=== PATIENT | male | born 1990 | race Caucasian/White ===

== ENCOUNTER 2016-04-07 19:18 | Emergency (ER) | payer OTHER ==
[2016-04-07] MEDS ORDERED: ONDANSETRON 4MG/2ML VIAL (J2405) As Ordered ONE (20:16)
[2016-04-07] MEDS ORDERED: KETOROLAC 30 MG/ML VIAL (J1885) As Ordered ONE (20:17)
[2016-04-07 20:35] LABS: BASO # 0.2 K/mm3 (0.0-0.2); BASO % 1.2 % (0.0-1.0); EOS # 0.2 K/mm3 (0.0-0.50); EOS % 1.4 % (0.0-3.0); LARGE UNSTAINED CELL # 0.2 K/mm3 (0.0-0.4); LARGE UNSTAINED CELL % 1.7 % (0.0-4.0); LYMPH # 1.8 K/mm3 (1.5-6.5); LYMPH % 11.4 % (24.0-44.0); MEAN CORPUSCULAR VOLUME 85.3 fl (80.0-96.0); MONO # 0.6 K/mm3 (0.0-0.8); MONO % 4.6 % (0.0-5.0); NEUTROPHILS # 10.7 K/mm3 (1.8-7.7); NEUTROPHILS % 79.7 % (36.0-66.0); PLATELET COUNT, AUTOMATED 232 k/mm3 (150-450); RED CELL DISTRIBUTION WIDTH 12.7 % (11.5-14.5); WHITE BLOOD COUNT 13.5 K/mm3 (4.0-10.0)
[2016-04-07 20:58] LABS: ALBUMIN 4.1 GM/DL (3.2-5.2); ALBUMIN/GLOBULIN RATIO 1.24 (1.00-1.93); ALKALINE PHOSPHATASE 71 U/L (45-117); ALT/SGPT 104 U/L (12-78); AMYLASE 71 U/L (25-115); ANION GAP 8 MEQ/L (8-16); AST/SGOT 83 U/L (15-37); BILIRUBIN,DIRECT 0.2 MG/DL (0.0-0.2); BILIRUBIN,TOTAL 0.5 MG/DL (0.2-1.0); BLOOD UREA NITROGEN 8 MG/DL (7-18); CARBON DIOXIDE LEVEL 31 MEQ/L (21-32); CHLORIDE LEVEL 103 MEQ/L (98-107); CREATININE FOR GFR 0.96 MG/DL (0.70-1.30); GLOMERULAR FILTRATION RATE > 60.0 (>60); GLUCOSE, FASTING 119 MG/DL (70-105); POTASSIUM SERUM 3.9 MEQ/L (3.5-5.1); SODIUM LEVEL 142 MEQ/L (136-145); TOTAL PROTEIN 7.4 GM/DL (6.4-8.2)
--- NOTE | 2016-04-07 21:30 | REPUSA ---
CLINICAL HISTORY: Pain. TECHNIQUE: Realtime sonographic images were obtained in multiple projections. COMMENTS: The liver is of uniform echo texture without evidence of mass or defect. There is no intra or extrahe patic biliary ductal dilatation. The common bile duct measures up to 3.6 mm. The gallbladder is physi ologically distended, contains sluge but without evidence of calculi. The gallbladder wall is not thi ckened and there is no pericholecystic fluid. There is no abdominal ascites. The visualized portions of the pancreas are unremarkable. The right kidney measures 14.3 cm and is fr ee of masses or hydronephrosis. The visualized portions of abdominal aorta present no abnormalities. IMPRESSION: Gallbladder sludge. Otherwise negative. Thank you for your kind referral of this patient.
[2016-04-07] MEDS ORDERED: MORPHINE 2 MG/ML 1ML SYRINGE As Ordered ONE (22:00)
[2016-04-07] MEDS ORDERED: ISOVUE-370 76% 100ML VIAL (Q9967) As Ordered ONE (22:42)
--- NOTE | 2016-04-07 23:50 | REPUSA ---
CLINICAL HISTORY: Abdominal pain. TECHNIQUE: CT abdomen and pelvis following administration of IV contrast. COMPARISON: No pertinent prior studies are available at this time. CT ABDOMEN WITH CONTRAST: Lung bases: No lung base infiltrate or effusion. Liver: Diffusely decreased hepatic attenuation consistent with fatty infiltration. No intrahepatic du ctal dilation. Gallbladder: Normally distended. Pancreas: No pancreatic duct dilation. Bowel loops: Nondistended. Spleen: Normal size. Adrenals: Normal size. Kidneys: No stones or hydronephrosis. Aorta: Normal caliber. Peritoneum: No free air. CT PELVIS WITH CONTRAST: Colon: Nondistended. Appendix: Normal appendix is seen. Bladder: Normally distended. Pelvic organs: Unremarkable. Peritoneum: No fluid. Skeleton: No acute findings. IMPRESSION: 1. Fatty hepatic infiltration. Correlate with hepatic enzymes. 2. Otherwise, no acute abdominal findings.
--- NOTE | 2016-04-08 00:31 | EDDOCDS ---
Nurse's Notes [facility] Name: Paz Castro Age: 25 yrs Sex: Male : 1990 Arrival Date: 04/07/2016 Time: 19:18 Bed I3 / M3 Private MD: MARIVEL Su Diagnosis: Upper abdominal pain, unspecified-RIGHT UPPER, POSSIBLE BILIARY COLIC SECONDARY TO BILIARY SLUDGE Presentation: 04/07 19:29 Presenting complaint: Patient states: acute upper abdominal pain started an hour ago rs3 when making dinner. pain radiates to mid back and chest. vomited once with the pain. Risk factors: the patient reports not having a history of previous torsion. Adult Sepsis Screening: The patient does not have new or worsening altered mentation. Patient's respiratory rate is less than 22. Systolic blood pressure is greater than 100. Patient has a qSOFA score of 0- Negative Sepsis Screen. Suicide/Homicide risk assessment- the patient denies having any suicidal and/or homicidal ideations and does not present with any other emotional, behavioral or mental health complaints. 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 Transition of care: patient was not received from another setting of care. 19:29 Acuity: YOLY Level 3 rs3 19:29 Method Of Arrival: Walkin/Carried/Asstd rs3 Triage Assessment: 19:30 General: Appears in no apparent distress. Pain: Location: chest and abdomen. HIV rs3 screening NA for this visit Offered previously. GI: Reports upper abd pain. Historical: - Allergies: no known allergies; - Home Meds: 1. none - PMHx: none; - PSHx: none; - Social history: Smoking status: Patient uses tobacco products, light tobacco smoker. No barriers to communication noted, The patient speaks fluent Hungarian. - Family history: Not pertinent. - : The pt / caregiver states he / she is not on anticoagulants. Home medication list is obtained from the patient. - Exposure Risk Screening:: None identified. Screenin:26 Screening information is obtained from the patient. Fall risk: No risks identified. jmb Assistance ADL's: requires no assistance with activities of daily living. Abuse/DV Screen: The patient / caregiver reports he/she is: not in a situation that causes fear, pain or injury. Nutritional screening: No deficits noted. home support is adequate. Assessment: 20:26 General: Appears uncomfortable, Behavior is appropriate for age, cooperative. Pain: jmb Location: xyphoid area Pain currently is 8 out of 10 on a pain scale. Neurological: Level of Consciousness is awake, alert, obeys commands, Oriented to person, place, time, Ointment Mill Tender are equal bilaterally Speech is normal, Facial symmetry appears normal, Facial symmetry: tongue is midline. Cardiovascular: Capillary refill < 3 seconds Heart tones present Pulses are all present. Rhythm is regular. Respiratory: Airway is patent Respiratory effort is even, unlabored, Respiratory pattern is regular, symmetrical, Breath sounds are clear bilaterally. GI: Abdomen is non- distended Bowel sounds present X 4 quads. Abd is soft X 4 quads. Derm: Skin is pink, warm & dry. Musculoskeletal: Range of motion intact in all extremities. 21:23 General: Appears in no apparent distress, comfortable, Behavior is appropriate for age, jmb cooperative, Patient laying on stretcher, appears comfortable. Patient voices pain scaled 7/10. Patient watching television with family at bedside. NO voiced complaints at this time. Pain reported to Jagdeep Kapoor.. Pain: Location: xyphoid area Pain currently is 7 out of 10 on a pain scale. Neurological: Level of Consciousness is awake, alert, obeys commands, Oriented to person, place, time. Respiratory: Airway is patent Respiratory effort is even, unlabored, Respiratory pattern is regular, symmetrical. 22:30 General: Appears in no apparent distress, comfortable, Behavior is appropriate for age, jmb cooperative. Neurological: Level of Consciousness is awake, alert, obeys commands, Oriented to person, place, time. Respiratory: Airway is patent Respiratory effort is even, unlabored, Respiratory pattern is regular, symmetrical. 23:21 General: Appears in no apparent distress, comfortable, Behavior is appropriate for age, jmb cooperative, Patient laying on stretcher watching television. NO voiced complaints at this time. . Neurological: Level of Consciousness is awake, alert, obeys commands, Oriented to person, place, time. Respiratory: Airway is patent Respiratory effort is even, unlabored, Respiratory pattern is regular, symmetrical. 04/08 00:08 General: Appears in no apparent distress, comfortable, Behavior is appropriate for age, jmb cooperative. Neurological: Level of Consciousness is awake, alert, obeys commands, Oriented to person, place, time. Respiratory: Airway is patent Respiratory effort is even, unlabored, Respiratory pattern is regular, symmetrical. Vital Signs: 04/07 19:21 BP 144 / 75; Pulse 90; Resp 20; Temp 97.5; Pulse Ox 100% ; Weight 70.31 kg; Height 5 elp ft. 7 in. (170.18 cm); Pain 10/10; 20:49 BP 104 / 55; Pulse 61; Resp 18; Temp 96.0(T); Pulse Ox 100% on R/A; Pain 6/10; sandra 04/08 00:25 BP 115 / 67 LA Sitting (auto/reg); Pulse 64 MON; Resp 18 S; Temp 97.7(O); Pulse Ox 100% cln on R/A; Pain 0/10; 04/07 19:21 Body Mass Index 24.28 (70.31 kg, 170.18 cm) elp Vitals: 04/07 19:21 Log In Time: April 07, 2016 at 19:18. el ED Course: 19:19 Patient visited by Jaimee Vera PCA. elp 19:19 Sharlene [facility] is Private Physician. elp 19:19 Patient moved to Waiting elp 19:21 Patient visited by Jaimee Vera PCA. elp 19:21 Patient moved to Pre RCE elp 19:30 Triage Initiated rs3 19:31 Patient moved to Triage 2 rs3 19:45 Naga Garza RPA-C is [facility]. ck7 19:45 Prasanth Jenkins DO is Attending Physician. ck7 19:45 Patient visited by Naga Garza RPA-C. ck7 20:14 Patient moved to I3 / M3 cln 20:17 Urinalysis Sent. ms18 20:17 Urine Culture Sent. ms18 20:26 The patient / caregiver is instructed regarding the plan of care and ED course. sherry 20:26 Amylase Sent. sherry 20:26 Basic Metabolic Profile Sent. sherry 20:26 CBC with Diff Sent. sherry 20:26 Lipase Sent. sherry 20:26 Liver Profile Sent. sherry 20:26 Inserted saline lock: 20 gauge in left antecubital area and blood collected. [facility] patient tolerated the procedure well. Labs drawn. (by ED staff). Sent per order to lab. Urine collected. Clean catch specimen. 20:28 Patient visited by Ilya Boyd,ROD. jmb 20:47 Patient moved to Ultrasound dmg 20:50 Patient visited by Lily Castorena, JANETH. sandra 21:04 Patient moved to I3 / M3 cz 21:24 Patient visited by Ilya Boyd,ROD. jmb 21:44 [facility] Payment Agreement was scanned into [employer] and attached to record. zo 21:47 Gallbladder US Returned. EDMS 22:07 Patient visited by Dillan Foley RN. cz 22:40 Patient visited by Naga Garza RPA-C. ck7 23:22 Patient visited by Ilya Boyd RN. jmb 04/08 00:09 Patient visited by Ilya Boyd RN. jmb 00:15 CT ABD & PELVIS: IV Contrast Only Returned. EDMS 00:22 Sloan Moss DO is Referral Physician. ck7 00:26 Patient visited by Isabel Faust, JANETH. cln 00:30 No procedures done that require assistance. cz Administered Medications: 04/07 20:26 Drug: Ondansetron 4 mg Route: IVP; Site: left antecubital; cz 20:28 Drug: ketorolac 30 mg [ketorolac 30 mg/mL (1 mL) injection solution (1 mL)] Route: IVP; cz Site: left antecubital; 20:51 Follow up: Response: Pain is decreased cz 20:30 Drug: NS 0.9% 1000 ml [sodium chloride 0.9 % intravenous solution] Route: IV; Rate: jmb bolus; Site: left antecubital; 22:02 Drug: morphine 2 mg [morphine 2 mg/mL intravenous cartridge (1 mL)] Route: IVP; Site: cz left antecubital; Order Results: Lab Order: Amylase; SPEC'M 04/07/16 20:23 Test: AMYLASE; Value: 71; Range: 25-115; Units: U/L; Status: F Lab Order: Basic Metabolic Profile; SPEC'M 04/07/16 20:23 Test: GLUCOSE, FASTING; Value: 119; Range: 70-105; Abnormal: Above high normal; Units: MG/DL; Status: F Test: BLOOD UREA NITROGEN; Value: 8; Range: 7-18; Units: MG/DL; Status: F Test: CREATININE FOR GFR; Value: 0.96; Range: 0.70-1.30; Units: MG/DL; Status: F Test: GLOMERULAR FILTRATION RATE; Value: > 60.0; Range: >60; Status: F Test: SODIUM LEVEL; Value: 142; Range: 136-145; Units: MEQ/L; Status: F Test: POTASSIUM SERUM; Value: 3.9; Range: 3.5-5.1; Units: MEQ/L; Status: F Test: CHLORIDE LEVEL; Value: 103; Range: 98-107; Units: MEQ/L; Status: F Test: CARBON DIOXIDE LEVEL; Value: 31; Range: 21-32; Units: MEQ/L; Status: F Test: ANION GAP; Value: 8; Range: 8-16; Units: MEQ/L; Status: F Test: CALCIUM LEVEL; Value: 9.0; Range: 8.5-10.1; Units: MG/DL; Status: F Test Note: ; Units are mL/min/1.73 m2 Chronic Kidney Disease Staging per NKF: Stage I & II GFR >=60 Normal to Mildly Decreased Stage III GFR 30-59 Moderately Decreased Stage IV GFR 15-29 Severely Decreased Stage V GFR <15 Very Little GFR Left ESRD GFR <15 on UNDERWRITING SPECIALIST Lab Order: CBC with Diff; SPEC'M 04/07/16 20:23 Test: WHITE BLOOD COUNT; Value: 13.5; Range: 4.0-10.0; Abnormal: Above high normal; Units: K/mm3; Status: F Test: RED BLOOD COUNT; Value: 5.21; Range: 4.30-6.10; Units: M/mm3; Status: F Test: HEMOGLOBIN; Value: 15.1; Range: 14.0-18.0; Units: g/dl; Status: F Test: HEMATOCRIT; Value: 44.4; Range: 42.0-52.0; Units: %; Status: F Test: MEAN CORPUSCULAR VOLUME; Value: 85.3; Range: 80.0-96.0; Units: fl; Status: F Test: MEAN CORPUSCULAR HEMOGLOBIN; Value: 29.0; Range: 27.0-33.0; Units: pg; Status: F Test: MEAN CORPUSCULAR HGB CONC; Value: 34.0; Range: 32.0-36.5; Units: g/dl; Status: F Test: RED CELL DISTRIBUTION WIDTH; Value: 12.7; Range: 11.5-14.5; Units: %; Status: F Test: PLATELET COUNT, AUTOMATED; Value: 232; Range: 150-450; Units: k/mm3; Status: F Test: NEUTROPHILS %; Value: 79.7; Range: 36.0-66.0; Abnormal: Above high normal; Units: %; Status: F Test: LYMPH %; Value: 11.4; Range: 24.0-44.0; Abnormal: Below low normal; Units: %; Status: F Test: MONO %; Value: 4.6; Range: 0.0-5.0; Units: %; Status: F Test: EOS %; Value: 1.4; Range: 0.0-3.0; Units: %; Status: F Test: BASO %; Value: 1.2; Range: 0.0-1.0; Abnormal: Above high normal; Units: %; Status: F Test: LARGE UNSTAINED CELL %; Value: 1.7; Range: 0.0-4.0; Units: %; Status: F Test: NEUTROPHILS #; Value: 10.7; Range: 1.8-7.7; Abnormal: Above high normal; Units: K/mm3; Status: F Test: LYMPH #; Value: 1.8; Range: 1.5-6.5; Units: K/mm3; Status: F Test: MONO #; Value: 0.6; Range: 0.0-0.8; Units: K/mm3; Status: F Test: EOS #; Value: 0.2; Range: 0.0-0.50; Units: K/mm3; Status: F Test: BASO #; Value: 0.2; Range: 0.0-0.2; Units: K/mm3; Status: F Test: LARGE UNSTAINED CELL #; Value: 0.2; Range: 0.0-0.4; Units: K/mm3; Status: F Lab Order: Lipase; SPEC'M 04/07/16 20:23 Test: LIPASE; Value: 220; Range: 73-393; Units: U/L; Status: F Lab Order: Liver Profile; SPEC'M 04/07/16 20:23 Test: AST/SGOT; Value: 83; Range: 15-37; Abnormal: Above high normal; Units: U/L; Status: F Test: ALT/SGPT; Value: 104; Range: 12-78; Abnormal: Above high normal; Units: U/L; Status: F Test: ALKALINE PHOSPHATASE; Value: 71; Range: 45-117; Units: U/L; Status: F Test: BILIRUBIN,TOTAL; Value: 0.5; Range: 0.2-1.0; Units: MG/DL; Status: F Test: BILIRUBIN,DIRECT; Value: 0.2; Range: 0.0-0.2; Units: MG/DL; Status: F Test: TOTAL PROTEIN; Value: 7.4; Range: 6.4-8.2; Units: GM/DL; Status: F Test: ALBUMIN; Value: 4.1; Range: 3.2-5.2; Units: GM/DL; Status: F Test: ALBUMIN/GLOBULIN RATIO; Value: 1.24; Range: 1.00-1.93; Status: F Lab Order: Urinalysis; SPEC'M 04/07/16 20:15 Test: APPEARANCE, URINE; Value: CLEAR; Range: CLEAR; Status: F Test: COLOR, URINE; Value: YELLOW; Range: YELLOW; Status: F Test: PH,URINE; Value: 6.0; Range: 5.0-9.0; Units: UNITS; Status: F Test: SPECIFIC GRAVITY URINE AUTO; Value: 1.014; Range: 1.002-1.035; Status: F Test: PROTEIN, URINE AUTO; Value: NEGATIVE; Range: NEGATIVE; Units: mg/dL; Status: F Test: GLUCOSE, URINE (UA) AUTO; Value: NEGATIVE; Range: NEGATIVE; Units: mg/dL; Status: F Test: KETONE, URINE AUTO; Value: NEGATIVE; Range: NEGATIVE; Units: mg/dL; Status: F Test: UROBILINOGEN, URINE AUTO; Value: 0.2; Range: 0.0-2.0; Units: mg/dL; Status: F Test: BILIRUBIN, URINE AUTO; Value: NEGATIVE; Range: NEGATIVE; Status: F Test: NITRITE, URINE AUTO; Value: NEGATIVE; Range: NEGATIVE; Status: F Test: LEUKOCYTE ESTERASE, URINE AUTO; Value: NEGATIVE; Range: NEGATIVE; Status: F Test: BLOOD, URINE BLOOD; Value: NEGATIVE; Range: NEGATIVE; Status: F Test: WBC, URINE AUTO; Value: 1; Range: 0-3; Units: /HPF; Status: F Test: RBC, URINE AUTO; Value: 0; Range: 0-3; Units: /HPF; Status: F Test: BACTERIA, URINE AUTO; Value: NEGATIVE; Range: NEGATIVE; Status: F Test: SQUAMOUS EPITHELIAL CELL UR AU; Value: 0; Range: 0-6; Units: /HPF; Status: F Test: MUCUS, URINE; Value: SMALL; Range: NEGATIVE; Status: F Test: HYALINE CAST, URINE AUTO; Value: 0; Range: 0-1; Units: /LPF; Status: F Radiology Order: Gallbladder US Test: Gallbladder US REASON FOR EXAMINATION: Biliary Colic; ; CLINICAL HISTORY: Pain.; TECHNIQUE: Realtime sonographic images were obtained in multiple projections.; COMMENTS:; The liver is of uniform echo texture without evidence of mass or defect. There is no intra or extrahe; patic biliary ductal dilatation. The common bile duct measures up to 3.6 mm. The gallbladder is physi; ologically distended, contains sluge but without evidence of calculi. The gallbladder wall is not thi; ckened and there is no pericholecystic fluid. There is no abdominal ascites.; The visualized portions of the pancreas are unremarkable. The right kidney measures 14.3 cm and is fr; ee of masses or hydronephrosis.; The visualized portions of abdominal aorta present no abnormalities.; IMPRESSION:; Gallbladder sludge. Otherwise negative.; Thank you for your kind referral of this patient.; ; Radiology Order: CT ABD & PELVIS: IV Contrast Only Test: CT ABD & PELVIS: IV Contrast Only REASON FOR EXAMINATION: Abdomen Pain; ; CLINICAL HISTORY: Abdominal pain.; ; TECHNIQUE: CT abdomen and pelvis following administration of IV contrast.; ; COMPARISON: No pertinent prior studies are available at this time.; ; CT ABDOMEN WITH CONTRAST:; Lung bases: No lung base infiltrate or effusion.; Liver: Diffusely decreased hepatic attenuation consistent with fatty infiltration. No intrahepatic du; ctal dilation.; Gallbladder: Normally distended.; Pancreas: No pancreatic duct dilation.; Bowel loops: Nondistended.; Spleen: Normal size.; Adrenals: Normal size.; Kidneys: No stones or hydronephrosis.; Aorta: Normal caliber.; Peritoneum: No free air.; ; CT PELVIS WITH CONTRAST:; Colon: Nondistended.; Appendix: Normal appendix is seen.; Bladder: Normally distended.; Pelvic organs: Unremarkable.; Peritoneum: No fluid.; Skeleton: No acute findings.; ; IMPRESSION:; 1. Fatty hepatic infiltration. Correlate with hepatic enzymes.; 2. Otherwise, no acute abdominal findings.; ; Outcome: 04/08 00:23 Discharge ordered by Provider. ck7 00:30 Discharge Assessment: Patient awake, alert and oriented x 3. No cognitive and/or cz functional deficits noted. Patient verbalized understanding of disposition instructions. patient administered narcotics - yes. Pt provided with safe discharge. The following High Risk Discharge criteria are identified: None. Discharged to home ambulatory, with friend. Condition: stable. Discharge instructions given to patient, Instructed on discharge instructions, follow up and referral plans. medication usage, Demonstrated understanding of instructions, medications, Pt was receptive of discharge instructions/ teaching. Prescriptions given X 2. CT Study completed. Ultrasound Study completed. Property :Personal belongings accompany Pt. 00:30 Patient left the ED. cz Signatures: Dispatcher [employer] EDMS Dillan Foley RN RN cz Gunn, Deanne dmg Olin, Zoeann zo Soosairaj, RosemaryRN RN rs3 Lily Castorena, INTERIOR WIRER INTERIOR WIRER Naga Tucker, RPA-C [id number] Jaimee Vera, INTERIOR WIRER INTERIOR WIRER Ilya Chance RN RN jmb Smith, Mallory, RN RN [id number] Isabel Faust, INTERIOR WIRER INTERIOR WIRER cln MTDD
--- NOTE | 2016-04-08 00:31 | EDDOCDS ---
Physician Documentation [facility] Name: Paz Castro Age: 25 yrs Sex: Male : 1990 Arrival Date: 04/07/2016 Time: 19:18 Bed I3 / M3 Private MD: MARIVEL Su Disposition: 04/08/16 00:23 Discharged to Home/Self Care. Impression: Upper abdominal pain, unspecified - RIGHT UPPER, POSSIBLE BILIARY COLIC SECONDARY TO BILIARY SLUDGE. - Condition is Stable. - Discharge Instructions: Abdominal Pain, Adult, Biliary Colic. - Prescriptions for Ibuprofen 600 mg Oral Tablet - take 1 tablet by ORAL route every 6 hours As needed take with food; 30 tablet. ZOFRAN ODT 4 mg - dissolve 1 tablet by ORAL route 4 times per day As needed do not chew, do not swallow whole; 10 tablet. - Medication Reconciliation, Local Pharmacy Hours form. - Follow up: Sloan Moss DO; When: 2 - 3 days; Reason: Recheck today's complaints, Continuance of care. - Problem is new. - Symptoms have improved. - Notes: USE MEDICATIONS INSTRUCTED, FOLLOW UP WITH DR MOSS, RETURN TO THE ER IF THE SYMPTOMS WORSEN OR BECOME CONCERNING Historical: - Allergies: no known allergies; - Home Meds: 1. none - PMHx: none; - PSHx: none; - Social history: Smoking status: Patient uses tobacco products, light tobacco smoker. No barriers to communication noted, The patient speaks fluent Yemeni. - Family history: Not pertinent. - : The pt / caregiver states he / she is not on anticoagulants. Home medication list is obtained from the patient. - Exposure Risk Screening:: None identified. Vital Signs: 04/07 19:21 BP 144 / 75; Pulse 90; Resp 20; Temp 97.5; Pulse Ox 100% ; Weight 70.31 kg / 155.01 elp lbs; Height 5 ft. 7 in. (170.18 cm); Pain 10/10; 20:49 BP 104 / 55; Pulse 61; Resp 18; Temp 96.0(T); Pulse Ox 100% on R/A; Pain 6/10; sandra 04/08 00:25 BP 115 / 67 LA Sitting (auto/reg); Pulse 64 MON; Resp 18 S; Temp 97.7(O); Pulse Ox 100% cln on R/A; Pain 0/10; 04/07 19:21 Body Mass Index 24.28 (70.31 kg, 170.18 cm) elp MDM: 04/07 20:12 Undress patient appropriately for examination ordered. ck7 20:12 IV Saline Lock ordered. ck7 20:12 NS 0.9% 1000 ml IV at bolus once ordered. ck7 20:12 ketorolac 30 mg IVP once ordered. ck7 20:12 Ondansetron 4 mg IVP once ordered. ck7 20:13 Amylase Ordered. EDMS 20:13 Basic Metabolic Profile Ordered. EDMS 20:13 CBC with Diff Ordered. EDMS 20:13 Lipase Ordered. EDMS 20:13 Liver Profile Ordered. EDMS 20:13 Urinalysis Ordered. EDMS 20:13 Urine Culture Ordered. EDMS 20:13 NOTHING BY MOUTH+DIET ordered. EDMS 20:14 Gallbladder US Ordered. EDMS 21:05 Basic Metabolic Profile Reviewed. ck7 21:05 CBC with Diff Reviewed. ck7 21:05 Liver Profile Reviewed. ck7 21:05 Amylase Reviewed. ck7 21:05 Lipase Reviewed. ck7 21:05 Urinalysis Reviewed. ck7 21:09 Financial registration complete. zo 21:44 [facility] Payment Agreement was scanned into [employer] and attached to record. zo 21:52 Gallbladder US Reviewed. ck7 21:55 morphine 2 mg IVP once ordered. ck7 21:56 CT ABD & PELVIS: IV Contrast Only Ordered. EDMS 04/08 00:19 CT ABD & PELVIS: IV Contrast Only Reviewed. ck7 Administered Medications: 04/07 20:26 Drug: Ondansetron 4 mg Route: IVP; Site: left antecubital; cz 20:28 Drug: ketorolac 30 mg [ketorolac 30 mg/mL (1 mL) injection solution (1 mL)] Route: IVP; cz Site: left antecubital; 20:51 Follow up: Response: Pain is decreased 20:30 Drug: NS 0.9% 1000 ml [sodium chloride 0.9 % intravenous solution] Route: IV; Rate: jmb bolus; Site: left antecubital; 22:02 Drug: morphine 2 mg [morphine 2 mg/mL intravenous cartridge (1 mL)] Route: IVP; Site: cz left antecubital; Signatures: Dispatcher [employer] Dillan Duong RN RN cz Griselda Mcdonald Rosemary, RN RN rs3 Naga Garza, RPA-C RPA-Cck7 Ilya Boyd RN RN eddieb The chart was reviewed and I authenticate all verbal orders and agree with the evaluation and treatment provided.Attachments: 21:44 [facility] Payment Agreement zo MTDD
--- NOTE | 2016-04-10 01:31 | EDDOCDS ---
Physician Documentation [facility] Name: Paz Castro Age: 25 yrs Sex: Male : 1990 Arrival Date: 04/07/2016 Time: 19:18 Bed I3 / M3 Private MD: MARIEVL Su Disposition: 04/08/16 00:23 Discharged to Home/Self Care. Impression: Upper abdominal pain, unspecified - RIGHT UPPER, POSSIBLE BILIARY COLIC SECONDARY TO BILIARY SLUDGE. - Condition is Stable. - Discharge Instructions: Abdominal Pain, Adult, Biliary Colic. - Prescriptions for Ibuprofen 600 mg Oral Tablet - take 1 tablet by ORAL route every 6 hours As needed take with food; 30 tablet. ZOFRAN ODT 4 mg - dissolve 1 tablet by ORAL route 4 times per day As needed do not chew, do not swallow whole; 10 tablet. - Medication Reconciliation, Local Pharmacy Hours form. - Follow up: Sloan Moss DO; When: 2 - 3 days; Reason: Recheck today's complaints, Continuance of care. - Problem is new. - Symptoms have improved. - Notes: USE MEDICATIONS INSTRUCTED, FOLLOW UP WITH DR MOSS, RETURN TO THE ER IF THE SYMPTOMS WORSEN OR BECOME CONCERNING Historical: - Allergies: no known allergies; - Home Meds: 1. none - PMHx: none; - PSHx: none; - Social history: Smoking status: Patient uses tobacco products, light tobacco smoker. No barriers to communication noted, The patient speaks fluent [place]. - Family history: Not pertinent. - : The pt / caregiver states he / she is not on anticoagulants. Home medication list is obtained from the patient. - Exposure Risk Screening:: None identified. Vital Signs: 04/07 19:21 BP 144 / 75; Pulse 90; Resp 20; Temp 97.5; Pulse Ox 100% ; Weight 70.31 kg / 155.01 elp lbs; Height 5 ft. 7 in. (170.18 cm); Pain 10/10; 20:49 BP 104 / 55; Pulse 61; Resp 18; Temp 96.0(T); Pulse Ox 100% on R/A; Pain 6/10; sandra 04/08 00:25 BP 115 / 67 LA Sitting (auto/reg); Pulse 64 MON; Resp 18 S; Temp 97.7(O); Pulse Ox 100% cln on R/A; Pain 0/10; 04/07 19:21 Body Mass Index 24.28 (70.31 kg, 170.18 cm) elp MDM: 04/07 20:12 Undress patient appropriately for examination ordered. ck7 20:12 IV Saline Lock ordered. ck7 20:12 NS 0.9% 1000 ml IV at bolus once ordered. ck7 20:12 ketorolac 30 mg IVP once ordered. ck7 20:12 Ondansetron 4 mg IVP once ordered. ck7 20:13 Amylase Ordered. EDMS 20:13 Basic Metabolic Profile Ordered. EDMS 20:13 CBC with Diff Ordered. EDMS 20:13 Lipase Ordered. EDMS 20:13 Liver Profile Ordered. EDMS 20:13 Urinalysis Ordered. EDMS 20:13 Urine Culture Ordered. EDMS 20:13 NOTHING BY MOUTH+DIET ordered. EDMS 20:14 Gallbladder US Ordered. EDMS 21:05 Basic Metabolic Profile Reviewed. ck7 21:05 CBC with Diff Reviewed. ck7 21:05 Liver Profile Reviewed. ck7 21:05 Amylase Reviewed. ck7 21:05 Lipase Reviewed. ck7 21:05 Urinalysis Reviewed. ck7 21:09 Financial registration complete. zo 21:44 [facility] [place] Payment Agreement was scanned into [employer] and attached to record. zo 21:52 Gallbladder US Reviewed. ck7 21:55 morphine 2 mg IVP once ordered. ck7 21:56 CT ABD & PELVIS: IV Contrast Only Ordered. EDMS 04/08 00:19 CT ABD & PELVIS: IV Contrast Only Reviewed. ck7 10:49 T-Sheet-- Draft Copy was scanned into [employer] and attached to record. gb 12:58 ED course: dr moss faxed formal report of ct abd/p for fu mlg. ml Administered Medications: 04/07 20:26 Drug: Ondansetron 4 mg Route: IVP; Site: left antecubital; cz 20:28 Drug: ketorolac 30 mg [ketorolac 30 mg/mL (1 mL) injection solution (1 mL)] Route: IVP; cz Site: left antecubital; 20:51 Follow up: Response: Pain is decreased cz 20:30 Drug: NS 0.9% 1000 ml [sodium chloride 0.9 % intravenous solution] Route: IV; Rate: jmb bolus; Site: left antecubital; 04/08 00:31 Follow up: IV Status: Completed infusion cz 04/07 22:02 Drug: morphine 2 mg [morphine 2 mg/mL intravenous cartridge (1 mL)] Route: IVP; Site: cz left antecubital; Signatures: Dispatcher [employer] [facility] Soila Landaverde MD MD ml Zecher, Calvin, RN RN cz Ronda Clayton, Reg Reg Griselda Khan RosemaryRN RN rs3 Naga Garza, RPA-C RPA-Cck7 Ilya Boyd RN RN jmb The chart was reviewed and I authenticate all verbal orders and agree with the evaluation and treatment provided.Attachments: 21:44 [facility] [place] Payment Agreement zo 04/08 10:49 T-Sheet-- Draft Copy gb Chart Complete MTDD
--- NOTE | 2016-04-10 01:31 | EDDOCDS ---
Nurse's Notes [facility] Name: Paz Castro Age: 25 yrs Sex: Male : 1990 Arrival Date: 04/07/2016 Time: 19:18 Bed I3 / M3 Private MD: MARIVEL Su Diagnosis: Upper abdominal pain, unspecified-RIGHT UPPER, POSSIBLE BILIARY COLIC SECONDARY TO BILIARY SLUDGE Presentation: 04/07 19:29 Presenting complaint: Patient states: acute upper abdominal pain started an hour ago rs3 when making dinner. pain radiates to mid back and chest. vomited once with the pain. Risk factors: the patient reports not having a history of previous torsion. Adult Sepsis Screening: The patient does not have new or worsening altered mentation. Patient's respiratory rate is less than 22. Systolic blood pressure is greater than 100. Patient has a qSOFA score of 0- Negative Sepsis Screen. Suicide/Homicide risk assessment- the patient denies having any suicidal and/or homicidal ideations and does not present with any other emotional, behavioral or mental health complaints. 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 Transition of care: patient was not received from another setting of care. 19:29 Acuity: YOLY Level 3 rs3 19:29 Method Of Arrival: Walkin/Carried/Asstd rs3 Triage Assessment: 19:30 General: Appears in no apparent distress. Pain: Location: chest and abdomen. HIV rs3 screening NA for this visit Offered previously. GI: Reports upper abd pain. Historical: - Allergies: no known allergies; - Home Meds: 1. none - PMHx: none; - PSHx: none; - Social history: Smoking status: Patient uses tobacco products, light tobacco smoker. No barriers to communication noted, The patient speaks fluent Telugu. - Family history: Not pertinent. - : The pt / caregiver states he / she is not on anticoagulants. Home medication list is obtained from the patient. - Exposure Risk Screening:: None identified. Screenin:26 Screening information is obtained from the patient. Fall risk: No risks identified. jmb Assistance ADL's: requires no assistance with activities of daily living. Abuse/DV Screen: The patient / caregiver reports he/she is: not in a situation that causes fear, pain or injury. Nutritional screening: No deficits noted. home support is adequate. Assessment: 20:26 General: Appears uncomfortable, Behavior is appropriate for age, cooperative. Pain: jmb Location: xyphoid area Pain currently is 8 out of 10 on a pain scale. Neurological: Level of Consciousness is awake, alert, obeys commands, Oriented to person, place, time, Manager Transfer are equal bilaterally Speech is normal, Facial symmetry appears normal, Facial symmetry: tongue is midline. Cardiovascular: Capillary refill < 3 seconds Heart tones present Pulses are all present. Rhythm is regular. Respiratory: Airway is patent Respiratory effort is even, unlabored, Respiratory pattern is regular, symmetrical, Breath sounds are clear bilaterally. GI: Abdomen is non- distended Bowel sounds present X 4 quads. Abd is soft X 4 quads. Derm: Skin is pink, warm & dry. Musculoskeletal: Range of motion intact in all extremities. 21:23 General: Appears in no apparent distress, comfortable, Behavior is appropriate for age, jmb cooperative, Patient laying on stretcher, appears comfortable. Patient voices pain scaled 7/10. Patient watching television with family at bedside. NO voiced complaints at this time. Pain reported to Jagdeep Kapoor.. Pain: Location: xyphoid area Pain currently is 7 out of 10 on a pain scale. Neurological: Level of Consciousness is awake, alert, obeys commands, Oriented to person, place, time. Respiratory: Airway is patent Respiratory effort is even, unlabored, Respiratory pattern is regular, symmetrical. 22:30 General: Appears in no apparent distress, comfortable, Behavior is appropriate for age, jmb cooperative. Neurological: Level of Consciousness is awake, alert, obeys commands, Oriented to person, place, time. Respiratory: Airway is patent Respiratory effort is even, unlabored, Respiratory pattern is regular, symmetrical. 23:21 General: Appears in no apparent distress, comfortable, Behavior is appropriate for age, jmb cooperative, Patient laying on stretcher watching television. NO voiced complaints at this time. . Neurological: Level of Consciousness is awake, alert, obeys commands, Oriented to person, place, time. Respiratory: Airway is patent Respiratory effort is even, unlabored, Respiratory pattern is regular, symmetrical. 04/08 00:08 General: Appears in no apparent distress, comfortable, Behavior is appropriate for age, jmb cooperative. Neurological: Level of Consciousness is awake, alert, obeys commands, Oriented to person, place, time. Respiratory: Airway is patent Respiratory effort is even, unlabored, Respiratory pattern is regular, symmetrical. Vital Signs: 04/07 19:21 BP 144 / 75; Pulse 90; Resp 20; Temp 97.5; Pulse Ox 100% ; Weight 70.31 kg; Height 5 elp ft. 7 in. (170.18 cm); Pain 10/10; 20:49 BP 104 / 55; Pulse 61; Resp 18; Temp 96.0(T); Pulse Ox 100% on R/A; Pain 6/10; sandra 04/08 00:25 BP 115 / 67 LA Sitting (auto/reg); Pulse 64 MON; Resp 18 S; Temp 97.7(O); Pulse Ox 100% cln on R/A; Pain 0/10; 04/07 19:21 Body Mass Index 24.28 (70.31 kg, 170.18 cm) elp Vitals: 04/07 19:21 Log In Time: April 07, 2016 at 19:18. el ED Course: 19:19 Patient visited by Jaimee Vera PCA. elp 19:19 Sharlene [facility] [place] [facility] is Private Physician. elp 19:19 Patient moved to Waiting elp 19:21 Patient visited by Jaimee Vera PCA. elp 19:21 Patient moved to Pre RCE elp 19:30 Triage Initiated rs3 19:31 Patient moved to Triage 2 rs3 19:45 Naga Garza RPA-C is [facility]. ck7 19:45 Prasanth Jenkins DO is Attending Physician. ck7 19:45 Patient visited by Naga Garza RPA-C. ck7 20:14 Patient moved to I3 / M3 cln 20:17 Urinalysis Sent. ms18 20:17 Urine Culture Sent. ms18 20:26 The patient / caregiver is instructed regarding the plan of care and ED course. sherry 20:26 Amylase Sent. sherry 20:26 Basic Metabolic Profile Sent. sherry 20:26 CBC with Diff Sent. sherry 20:26 Lipase Sent. sherry 20:26 Liver Profile Sent. sherry 20:26 Inserted saline lock: 20 gauge in left antecubital area and blood collected. The [facility] patient tolerated the procedure well. Labs drawn. (by ED staff). Sent per order to lab. Urine collected. Clean catch specimen. 20:28 Patient visited by Ilya Boyd,ROD. jmb 20:47 Patient moved to Ultrasound dmg 20:50 Patient visited by Lily Castorena, JANETH. sandra 21:04 Patient moved to I3 / M3 cz 21:24 Patient visited by Ilya Boyd,ROD. jmb 21:44 [facility] [place] Agreement was scanned into [employer] and attached to record. zo 21:47 Gallbladder US Returned. EDMS 22:07 Patient visited by Dillan Foley RN. cz 22:40 Patient visited by Naga Garza RPA-C. ck7 23:22 Patient visited by Ilya Boyd RN. jmb 04/08 00:09 Patient visited by Ilya Boyd RN. jmb 00:15 CT ABD & PELVIS: IV Contrast Only Returned. EDMS 00:22 Sloan Moss DO is Referral Physician. ck7 00:26 Patient visited by Isabel Faust, JANETH. cln 00:30 No procedures done that require assistance. cz 10:49 T-Sheet-- Draft Copy was scanned into [employer] and attached to record. gb Administered Medications: 04/07 20:26 Drug: Ondansetron 4 mg Route: IVP; Site: left antecubital; cz 20:28 Drug: ketorolac 30 mg [ketorolac 30 mg/mL (1 mL) injection solution (1 mL)] Route: IVP; cz Site: left antecubital; 20:51 Follow up: Response: Pain is decreased cz 20: Drug: NS 0.9% 1000 ml [sodium chloride 0.9 % intravenous solution] Route: IV; Rate: jmb bolus; Site: left antecubital; 04/08 00:31 Follow up: IV Status: Completed infusion cz 04/07 22:02 Drug: morphine 2 mg [morphine 2 mg/mL intravenous cartridge (1 mL)] Route: IVP; Site: left antecubital; Order Results: Lab Order: Amylase; SPEC'M 04/07/16 20:23 Test: AMYLASE; Value: 71; Range: 25-115; Units: U/L; Status: F Lab Order: Basic Metabolic Profile; SPEC'M 04/07/16 20:23 Test: GLUCOSE, FASTING; Value: 119; Range: 70-105; Abnormal: Above high normal; Units: MG/DL; Status: F Test: BLOOD UREA NITROGEN; Value: 8; Range: 7-18; Units: MG/DL; Status: F Test: CREATININE FOR GFR; Value: 0.96; Range: 0.70-1.30; Units: MG/DL; Status: F Test: GLOMERULAR FILTRATION RATE; Value: > 60.0; Range: >60; Status: F Test: SODIUM LEVEL; Value: 142; Range: 136-145; Units: MEQ/L; Status: F Test: POTASSIUM SERUM; Value: 3.9; Range: 3.5-5.1; Units: MEQ/L; Status: F Test: CHLORIDE LEVEL; Value: 103; Range: 98-107; Units: MEQ/L; Status: F Test: CARBON DIOXIDE LEVEL; Value: 31; Range: 21-32; Units: MEQ/L; Status: F Test: ANION GAP; Value: 8; Range: 8-16; Units: MEQ/L; Status: F Test: CALCIUM LEVEL; Value: 9.0; Range: 8.5-10.1; Units: MG/DL; Status: F Test Note: ; Units are mL/min/1.73 m2 Chronic Kidney Disease Staging per NKF: Stage I & II GFR >=60 Normal to Mildly Decreased Stage III GFR 30-59 Moderately Decreased Stage IV GFR 15-29 Severely Decreased Stage V GFR <15 Very Little GFR Left ESRD GFR <15 on EVP [employer] Lab Order: CBC with Diff; SPEC'M 04/07/16 20:23 Test: WHITE BLOOD COUNT; Value: 13.5; Range: 4.0-10.0; Abnormal: Above high normal; Units: K/mm3; Status: F Test: RED BLOOD COUNT; Value: 5.21; Range: 4.30-6.10; Units: M/mm3; Status: F Test: HEMOGLOBIN; Value: 15.1; Range: 14.0-18.0; Units: g/dl; Status: F Test: HEMATOCRIT; Value: 44.4; Range: 42.0-52.0; Units: %; Status: F Test: MEAN CORPUSCULAR VOLUME; Value: 85.3; Range: 80.0-96.0; Units: fl; Status: F Test: MEAN CORPUSCULAR HEMOGLOBIN; Value: 29.0; Range: 27.0-33.0; Units: pg; Status: F Test: MEAN CORPUSCULAR HGB CONC; Value: 34.0; Range: 32.0-36.5; Units: g/dl; Status: F Test: RED CELL DISTRIBUTION WIDTH; Value: 12.7; Range: 11.5-14.5; Units: %; Status: F Test: PLATELET COUNT, AUTOMATED; Value: 232; Range: 150-450; Units: k/mm3; Status: F Test: NEUTROPHILS %; Value: 79.7; Range: 36.0-66.0; Abnormal: Above high normal; Units: %; Status: F Test: LYMPH %; Value: 11.4; Range: 24.0-44.0; Abnormal: Below low normal; Units: %; Status: F Test: MONO %; Value: 4.6; Range: 0.0-5.0; Units: %; Status: F Test: EOS %; Value: 1.4; Range: 0.0-3.0; Units: %; Status: F Test: BASO %; Value: 1.2; Range: 0.0-1.0; Abnormal: Above high normal; Units: %; Status: F Test: LARGE UNSTAINED CELL %; Value: 1.7; Range: 0.0-4.0; Units: %; Status: F Test: NEUTROPHILS #; Value: 10.7; Range: 1.8-7.7; Abnormal: Above high normal; Units: K/mm3; Status: F Test: LYMPH #; Value: 1.8; Range: 1.5-6.5; Units: K/mm3; Status: F Test: MONO #; Value: 0.6; Range: 0.0-0.8; Units: K/mm3; Status: F Test: EOS #; Value: 0.2; Range: 0.0-0.50; Units: K/mm3; Status: F Test: BASO #; Value: 0.2; Range: 0.0-0.2; Units: K/mm3; Status: F Test: LARGE UNSTAINED CELL #; Value: 0.2; Range: 0.0-0.4; Units: K/mm3; Status: F Lab Order: Lipase; SPEC'M 04/07/16 20:23 Test: LIPASE; Value: 220; Range: 73-393; Units: U/L; Status: F Lab Order: Liver Profile; SPEC'M 04/07/16 20:23 Test: AST/SGOT; Value: 83; Range: 15-37; Abnormal: Above high normal; Units: U/L; Status: F Test: ALT/SGPT; Value: 104; Range: 12-78; Abnormal: Above high normal; Units: U/L; Status: F Test: ALKALINE PHOSPHATASE; Value: 71; Range: 45-117; Units: U/L; Status: F Test: BILIRUBIN,TOTAL; Value: 0.5; Range: 0.2-1.0; Units: MG/DL; Status: F Test: BILIRUBIN,DIRECT; Value: 0.2; Range: 0.0-0.2; Units: MG/DL; Status: F Test: TOTAL PROTEIN; Value: 7.4; Range: 6.4-8.2; Units: GM/DL; Status: F Test: ALBUMIN; Value: 4.1; Range: 3.2-5.2; Units: GM/DL; Status: F Test: ALBUMIN/GLOBULIN RATIO; Value: 1.24; Range: 1.00-1.93; Status: F Lab Order: Urinalysis; SPEC'M 04/07/16 20:15 Test: APPEARANCE, URINE; Value: CLEAR; Range: CLEAR; Status: F Test: COLOR, URINE; Value: YELLOW; Range: YELLOW; Status: F Test: PH,URINE; Value: 6.0; Range: 5.0-9.0; Units: UNITS; Status: F Test: SPECIFIC GRAVITY URINE AUTO; Value: 1.014; Range: 1.002-1.035; Status: F Test: PROTEIN, URINE AUTO; Value: NEGATIVE; Range: NEGATIVE; Units: mg/dL; Status: F Test: GLUCOSE, URINE (UA) AUTO; Value: NEGATIVE; Range: NEGATIVE; Units: mg/dL; Status: F Test: KETONE, URINE AUTO; Value: NEGATIVE; Range: NEGATIVE; Units: mg/dL; Status: F Test: UROBILINOGEN, URINE AUTO; Value: 0.2; Range: 0.0-2.0; Units: mg/dL; Status: F Test: BILIRUBIN, URINE AUTO; Value: NEGATIVE; Range: NEGATIVE; Status: F Test: NITRITE, URINE AUTO; Value: NEGATIVE; Range: NEGATIVE; Status: F Test: LEUKOCYTE ESTERASE, URINE AUTO; Value: NEGATIVE; Range: NEGATIVE; Status: F Test: BLOOD, URINE BLOOD; Value: NEGATIVE; Range: NEGATIVE; Status: F Test: WBC, URINE AUTO; Value: 1; Range: 0-3; Units: /HPF; Status: F Test: RBC, URINE AUTO; Value: 0; Range: 0-3; Units: /HPF; Status: F Test: BACTERIA, URINE AUTO; Value: NEGATIVE; Range: NEGATIVE; Status: F Test: SQUAMOUS EPITHELIAL CELL UR AU; Value: 0; Range: 0-6; Units: /HPF; Status: F Test: MUCUS, URINE; Value: SMALL; Range: NEGATIVE; Status: F Test: HYALINE CAST, URINE AUTO; Value: 0; Range: 0-1; Units: /LPF; Status: F Lab Order: Urine Culture; SPEC'M 04/07/16 20:15 Test: URINE CULTURE; Value: <EXTERNAL COMMENT eCWMed> FULL REPORT IN LAB NOTES (eCW and Medent).; Status: F Test: URINE CULTURE; Value: URINE CULTURE RESULT NO GROWTH CLINICAL SIGNIFICANCE 1 ORGANISM; Status: F Radiology Order: Gallbladder US Test: Gallbladder US REASON FOR EXAMINATION: Biliary Colic; ; CLINICAL HISTORY: Pain.; TECHNIQUE: Realtime sonographic images were obtained in multiple projections.; COMMENTS:; The liver is of uniform echo texture without evidence of mass or defect. There is no intra or extrahe; patic biliary ductal dilatation. The common bile duct measures up to 3.6 mm. The gallbladder is physi; ologically distended, contains sluge but without evidence of calculi. The gallbladder wall is not thi; ckened and there is no pericholecystic fluid. There is no abdominal ascites.; The visualized portions of the pancreas are unremarkable. The right kidney measures 14.3 cm and is fr; ee of masses or hydronephrosis.; The visualized portions of abdominal aorta present no abnormalities.; IMPRESSION:; Gallbladder sludge. Otherwise negative.; Thank you for your kind referral of this patient.; ; Radiology Order: CT ABD & PELVIS: IV Contrast Only Test: CT ABD & PELVIS: IV Contrast Only REASON FOR EXAMINATION: Abdomen Pain; ; CLINICAL HISTORY: Abdominal pain.; ; TECHNIQUE: CT abdomen and pelvis following administration of IV contrast.; ; COMPARISON: No pertinent prior studies are available at this time.; ; CT ABDOMEN WITH CONTRAST:; Lung bases: No lung base infiltrate or effusion.; Liver: Diffusely decreased hepatic attenuation consistent with fatty infiltration. No intrahepatic du; ctal dilation.; Gallbladder: Normally distended.; Pancreas: No pancreatic duct dilation.; Bowel loops: Nondistended.; Spleen: Normal size.; Adrenals: Normal size.; Kidneys: No stones or hydronephrosis.; Aorta: Normal caliber.; Peritoneum: No free air.; ; CT PELVIS WITH CONTRAST:; Colon: Nondistended.; Appendix: Normal appendix is seen.; Bladder: Normally distended.; Pelvic organs: Unremarkable.; Peritoneum: No fluid.; Skeleton: No acute findings.; ; IMPRESSION:; 1. Fatty hepatic infiltration. Correlate with hepatic enzymes.; 2. Otherwise, no acute abdominal findings.; ; Outcome: 04/08 00:23 Discharge ordered by Provider. ck7 00:30 Discharge Assessment: Patient awake, alert and oriented x 3. No cognitive and/or cz functional deficits noted. Patient verbalized understanding of disposition instructions. patient administered narcotics - yes. Pt provided with safe discharge. The following High Risk Discharge criteria are identified: None. Discharged to home ambulatory, with friend. Condition: stable. Discharge instructions given to patient, Instructed on discharge instructions, follow up and referral plans. medication usage, Demonstrated understanding of instructions, medications, Pt was receptive of discharge instructions/ teaching. Prescriptions given X 2. CT Study completed. Ultrasound Study completed. Property :Personal belongings accompany Pt. 00:30 Patient left the ED. cz Signatures: Dispatcher [employer] EDMS Dillan Foley RN RN cz Gunn, Deanne dmg Barnhardt, Gloria, Reg Reg gb Griselda Mcdonald Rosemary, RN RN rs3 Lily Castorena, SENIOR LEAD PROJECT MANAGER SENIOR LEAD PROJECT MANAGER Naga Tucker, RPA-C [id number] Jaimee Vera, SENIOR LEAD PROJECT MANAGER SENIOR LEAD PROJECT MANAGER michip Ilya Boyd,RN RN jmb Romana Hill,ROD RN ms18 Govind, Isabel, SENIOR LEAD PROJECT MANAGER SENIOR LEAD PROJECT MANAGER cln Chart Complete MTDD
--- NOTE | 2016-04-10 01:31 | EDDOCDS ---
Physician Documentation [facility] Name: Paz Castro Age: 25 yrs Sex: Male : 1990 Arrival Date: 04/07/2016 Time: 19:18 Bed I3 / M3 Private MD: MARIVEL Su Disposition: 04/08/16 00:23 Discharged to Home/Self Care. Impression: Upper abdominal pain, unspecified - RIGHT UPPER, POSSIBLE BILIARY COLIC SECONDARY TO BILIARY SLUDGE. - Condition is Stable. - Discharge Instructions: Abdominal Pain, Adult, Biliary Colic. - Prescriptions for Ibuprofen 600 mg Oral Tablet - take 1 tablet by ORAL route every 6 hours As needed take with food; 30 tablet. ZOFRAN ODT 4 mg - dissolve 1 tablet by ORAL route 4 times per day As needed do not chew, do not swallow whole; 10 tablet. - Medication Reconciliation, Local Pharmacy Hours form. - Follow up: Sloan Moss DO; When: 2 - 3 days; Reason: Recheck today's complaints, Continuance of care. - Problem is new. - Symptoms have improved. - Notes: USE MEDICATIONS INSTRUCTED, FOLLOW UP WITH DR MOSS, RETURN TO THE ER IF THE SYMPTOMS WORSEN OR BECOME CONCERNING Historical: - Allergies: no known allergies; - Home Meds: 1. none - PMHx: none; - PSHx: none; - Social history: Smoking status: Patient uses tobacco products, light tobacco smoker. No barriers to communication noted, The patient speaks fluent [place]. - Family history: Not pertinent. - : The pt / caregiver states he / she is not on anticoagulants. Home medication list is obtained from the patient. - Exposure Risk Screening:: None identified. Vital Signs: 04/07 19:21 BP 144 / 75; Pulse 90; Resp 20; Temp 97.5; Pulse Ox 100% ; Weight 70.31 kg / 155.01 elp lbs; Height 5 ft. 7 in. (170.18 cm); Pain 10/10; 20:49 BP 104 / 55; Pulse 61; Resp 18; Temp 96.0(T); Pulse Ox 100% on R/A; Pain 6/10; sandra 04/08 00:25 BP 115 / 67 LA Sitting (auto/reg); Pulse 64 MON; Resp 18 S; Temp 97.7(O); Pulse Ox 100% cln on R/A; Pain 0/10; 04/07 19:21 Body Mass Index 24.28 (70.31 kg, 170.18 cm) elp MDM: 04/07 20:12 Undress patient appropriately for examination ordered. ck7 20:12 IV Saline Lock ordered. ck7 20:12 NS 0.9% 1000 ml IV at bolus once ordered. ck7 20:12 ketorolac 30 mg IVP once ordered. ck7 20:12 Ondansetron 4 mg IVP once ordered. ck7 20:13 Amylase Ordered. EDMS 20:13 Basic Metabolic Profile Ordered. EDMS 20:13 CBC with Diff Ordered. EDMS 20:13 Lipase Ordered. EDMS 20:13 Liver Profile Ordered. EDMS 20:13 Urinalysis Ordered. EDMS 20:13 Urine Culture Ordered. EDMS 20:13 NOTHING BY MOUTH+DIET ordered. EDMS 20:14 Gallbladder US Ordered. EDMS 21:05 Basic Metabolic Profile Reviewed. ck7 21:05 CBC with Diff Reviewed. ck7 21:05 Liver Profile Reviewed. ck7 21:05 Amylase Reviewed. ck7 21:05 Lipase Reviewed. ck7 21:05 Urinalysis Reviewed. ck7 21:09 Financial registration complete. zo 21:44 [facility] Payment Agreement was scanned into [email or web address] and attached to record. zo 21:52 Gallbladder US Reviewed. ck7 21:55 morphine 2 mg IVP once ordered. ck7 21:56 CT ABD & PELVIS: IV Contrast Only Ordered. EDMS 04/08 00:19 CT ABD & PELVIS: IV Contrast Only Reviewed. ck7 10:49 T-Sheet-- Draft Copy was scanned into [email or web address] and attached to record. gb 12:58 ED course: dr moss faxed formal report of ct abd/p for fu mlg. ml Administered Medications: 04/07 20:26 Drug: Ondansetron 4 mg Route: IVP; Site: left antecubital; cz 20:28 Drug: ketorolac 30 mg [ketorolac 30 mg/mL (1 mL) injection solution (1 mL)] Route: IVP; cz Site: left antecubital; 20:51 Follow up: Response: Pain is decreased cz 20:30 Drug: NS 0.9% 1000 ml [sodium chloride 0.9 % intravenous solution] Route: IV; Rate: jmb bolus; Site: left antecubital; 04/08 00:31 Follow up: IV Status: Completed infusion cz 04/07 22:02 Drug: morphine 2 mg [morphine 2 mg/mL intravenous cartridge (1 mL)] Route: IVP; Site: cz left antecubital; Signatures: Dispatcher [employer] [facility] Soila Landaverde MD MD ml Zecher, Calvin, RN RN cz Ronda Clayton, Reg Reg Griselda Khan RosemaryRN RN rs3 Naga Garza, RPA-C [id number] Ilya Boyd RN RN jmb The chart was reviewed and I authenticate all verbal orders and agree with the evaluation and treatment provided.Attachments: 21:44 [facility] Payment Agreement zo 04/08 10:49 T-Sheet-- Draft Copy gb Chart Complete MTDD
== END 2016-04-08 00:30 | disposition home or self-care (01) ==
LOC: M ED 19:18
DX: R10.11 Right upper quadrant pain (principal); K82.8 Other specified diseases of gallbladder; F17.210 Nicotine dependence, cigarettes, uncomplicated
CPT/HCPCS: 36415; 74177; 76705; 80048; 80076; 81001; 82150; 83690; 85025; 87086; 96361; 96374; 96375; 99284; J1885; J2405; Q9967